=== PATIENT | female | born 1970 | race Caucasian/White ===

== ENCOUNTER 2020-05-11 13:42 | Emergency (ER) | payer OTHER, SELFPAY ==
--- NOTE | ~2020-05-11 | XR_ITS ---
EXAMINATION: XR chest 2V EXAM DATE: 05/11/2020 13:58 INDICATION: covid + bibasilar diminished breathe sounds TECHNIQUE: Frontal and lateral projections of the chest obtained and reviewed. There is no prior alix dy for comparison. FINDINGS: Small amount of ill-defined bilateral peripheral midlung zone and right lower lung zone ac gail airspace disease, distribution and appearance is consistent with COVID-19 pneumonia. Upper lung z ones are clear. Cardiomediastinal silhouette is normal. There is no pneumothorax suspected. There are no pleural effusions. There are no osseous abnormalities identified. IMPRESSION: Small amount of bilateral acute airspace disease. Clinical correlation. Reviewed, dictated and finalized at location A. CLERK IMPRESSION: Small amount of bilateral acute airspace disease. Clinical correlat ion.
--- NOTE | 2020-05-11 13:52 | ED.URI ---
HPI - URI/Sore Throat General Chief Complaint: Upper Respiratory Infection Stated Complaint: Covid symptoms Time Seen by Provider: 05/11/20 13:52 Source: patient, family and RN notes reviewed History of Present Illness HPI Narrative: Patient is a 49-year-old female who presents the urgent care with her with complaints of Covid complications. Patient states that she tested positive for Covid 8 days ago and is still having lethargy, itchy rash to the back and the back of the legs, fatigue, mild nonproductive cough, and shortness of breath. Patient states that she also has fevers but only in the evenings. States that her temperature last night was 100.1 Fahrenheit. Patient states that she has been taking Tylenol/ibuprofen as needed. Patient is speaking in full sentences without any dyspnea. Patient is ambulatory without any dyspnea. Patient states that she works at [employer] and has an x-ray check and was advised to be seen at a facility due to complications . Patient currently denies of any chest pain. No acute distress noted. Patient aware of the plan of care. Some parts of this dictation were generated by voice recognition software and may contain typographical and/or grammatical inaccuracies. Related Data Home Medications Medication Instructions Recorded Confirmed clonazepam 0.5 mg PO DAILY PRN 05/11/20 05/11/20 temazepam 7.5 mg PO HS PRN 05/11/20 05/11/20 Allergies Allergy/AdvReac Type Severity Reaction Status Date / Time acetaminophen [From Vicodin] Allergy Rash Verified 05/11/20 14:00 hydrocodone [From Vicodin] Allergy Rash Verified 05/11/20 14:00 nitrofurantoin Allergy Other Verified 05/11/20 13:59 [From Macrobid] Review of Systems Review of Systems: Narrative: CONSTITUTIONAL: Reports of intermittent fevers, chills, sweats, and fatigue EYES: Denies visual changes, redness, or discharge. ENT: Denies rhinorrhea, congestion, sore throat, or otalgia. CARDIOVASCULAR: Denies chest pain, palpitations, or edema. RESPIRATORY: Reports a mild nonproductive cough with intermittent dyspnea GASTROINTESTINAL: Reports of intermittent diarrhea/nausea/vomiting GENITOURINARY: Denies dysuria or hematuria. SKIN: Reports of itchy rash to the back and posterior bilateral legs MUSCULOSKELETAL: Denies back pain, joint pain. Reports of body aches NEUROLOGIC: Denies headache, numbness, or weakness. All other systems reviewed are negative, except as documented in HPI. PMFSH Comments At the time of my signature, I reviewed and agree with the nursing past medical, surgical, social, and family history. There is no relevant family history pertinent to the patient complaint. Exam Narrative: Exam Narrative: GENERAL: This is a well-nourished, well-developed patient, in no apparent distress. HEAD: normocephalic, atraumatic. EYES: PERRL. Sclera clear/white. Vision is grossly intact. EARS: External ears normal, auditory canals clear and without drainage, TMs normal without perforation. Hearing grossly intact. NOSE: External nose normal with no obvious nasal discharge, nares without redness, no rhinorrhea. THROAT: Mucous membranes moist, posterior pharynx clear. Moderate postnasal drainage NECK: Neck supple CARDIOVASCULAR: Regular rate and rhythm without murmurs, gallops, or rubs. RESPIRATORY: Clear to auscultation. Diminished bibasilar SKIN: Papular erythemic pruritic dermatitis noted to bilateral posterior lower extremities and upper back NEURO: awake, alert, and oriented to person, place and time. There were no obvious focal neurologic abnormalities. EXTREMITIES: No clubbing, cyanosis, or edema. Course Vital Signs Vital signs: Vital Signs Temperature 100.1 F H 05/11/20 14:01 Pulse Rate 108 H 05/11/20 14:01 Respiratory Rate 05/11/20 14:01 Blood Pressure 119/82 05/11/20 14:01 Pulse Oximetry 95 05/11/20 14:01 Temperature 100.1 F H 05/11/20 14:01 Pulse Rate 108 H 05/11/20 14:01 Respiratory Rate
[2020-05-11 14:01] VITALS: BP 119/82; PULSE 108; RESP 20; TEMP 37.8; O2SAT 95
== END 2020-05-11 14:36 | disposition home or self-care (01) ==
PROVIDERS: Emergency Provider Nurse Practitioner Family
DX: U07.1 COVID-19 (principal); F41.9 Anxiety disorder, unspecified
CPT/HCPCS: 71046; 99203; G0463

== ENCOUNTER 2020-07-09 16:25 | Outpatient (CLI) | payer OTHER, SELFPAY ==
--- NOTE | ~2020-07-09 | XR_ITS ---
CORRECTED REPORT Additional diagnosis added per ordering DrRed request. See below bold text. [id number] EXAMINATION: XR chest 2V DATE: 07/09/2020 16:49 INDICATION: Shortness of breath and cough, HX of COVID TECHNIQUE: Frontal and lateral views of the chest were obtained. COMPARISON: Chest 2 views 05/11/2020 FINDINGS: The chest demonstrates clear lungs without pneumonia, pleural effusion, or pneumothorax. The heart size is normal. There are surgical clips in the abdomen. IMPRESSION: 1. No acute cardiopulmonary disease. Reviewed, dictated and finalized at location A. S REGISTERED NURSE RN MTDD
== END 2020-07-09 16:26 | disposition home or self-care (01) ==
DX: R06.02 Shortness of breath (principal); Z86.16 Personal history of COVID-19
CPT/HCPCS: 71046